=== PATIENT | female | born 1965 | race Caucasian/White ===

== ENCOUNTER 2022-11-01 09:38 | Emergency (ER) | payer BC ==
--- NOTE | 2022-11-01 09:48 | ED Physician Documentation ---
PD HPI BACK PAIN - Stated complaint Stated Complaint: BACK PX/SEIZING - History obtained from History obtained from: Patient - History of Present Illness Timing - onset: How many weeks ago (1) Timing - duration: Weeks (1) Timing - details: Gradual onset, Still present Location: Lower, Right Quality: Pain, Spasm, Aching Associated symptoms: No: Fever, Weakness, Numbness, Incontinent of urine Improves with: Rest. No: Meds Worsened by: Movement, Twisting, Palpation Contributing factors: Twisting. No: Trauma Similar symptoms before: Diagnosis (prior low back pain remotely. Not ongoing nor frequently recurring.) Recently seen: Not recently seen Review of Systems Constitutional: denies: Fever, Chills GI: denies: Abdominal Pain Skin: denies: Rash, Lesions Neurologic: denies: Focal weakness, Numbness PD PAST MEDICAL HISTORY - Past Medical History Cardiovascular: None Respiratory: None Endocrine/Autoimmune: None Musculoskeletal: None - Present Medications Home Medications: Ambulatory Orders Medication Instructions Recorded Confirmed Albuterol Sulf [Ventolin Hfa 1 - 2 puffs INH Q4HR PRN 11/01/22 11/01/22 Inhaler] Diclofenac Sodium 50 mg PO BID #20 tab 11/01/22 Famotidine 10 mg PO DAILY 11/01/22 11/01/22 Fluticasone Propionate [Flovent 1 puffs IH BID 11/01/22 11/01/22 Diskus] Montelukast [Singulair] 10 mg PO QPM 11/01/22 11/01/22 tiZANidine [Zanaflex] 4 mg PO Q8H PRN #25 tablet 11/01/22 - Allergies Allergies/Adverse Reactions: Allergies Allergy/AdvReac Type Severity Reaction Status Date / Time codeine Allergy Anaphylaxis Verified 11/01/22 09:51 metoclopramide [From Reglan] Allergy Hives Verified 11/01/22 09:51 ondansetron [From Zofran] Allergy Hives Verified 11/01/22 09:51 PD ED PE NORMAL - Vitals Vital signs reviewed: Yes - General General: Alert and oriented X 3, Well developed/nourished, Other (guarding ROM of the back, walking stiffly. ) - Abdomen Abdomen: Soft, Non tender - Back Back: No CVA TTP, No spinal TTP, Other (tender right lower lumbar at SI upper area. No redness/rash/sores. ) - Derm Derm: Normal color, Warm and dry - Neuro Neuro: Alert and oriented X 3, No motor deficit, No sensory deficit Results - Vitals Vitals: Vital Signs - 24 hr 11/01/22 09:51 Temperature 36 C L Heart Rate 95 Respiratory 12 Rate Blood Pressure 137/86 H O2 Saturation 98 Oxygen O2 Source Room air PD Medical Decision Making - ED course Complexity details: considered differential (right lower lumbar pain without abrupt trauma and no red flags on history/exam. can treat as muscular. ), d/w patient ED course: She has a very local area of tenderness right lower lumbar. gave Kenalog an d marcaine local injection without problems. Also given Toradol injection and pO muscle relaxant. She is allergic to codeine and prefers not opioids. Departure - Departure Disposition: 01 Home, Self Care Clinical Impression: Acute myofascial strain of lumbar region Qualifiers: Encounter type: initial encounter Qualified Code(s): S39.012A - Strain of muscle, fascia and tendon of lower back, initial encounter Condition: Stable Instructions: ED Sprain Strain Lumbar Prescriptions: Diclofenac Sodium 50 mg PO BID #20 tab tiZANidine [Zanaflex] 4 mg PO Q8H PRN #25 tablet PRN Reason: Spasms Comments: He, gentle stretching, massage and chiropractic are all good. If this is having difficulty getting better or even just for preventative, you could check with your primary care about getting a physical therapy referral. Continue with anti-inflammatories. The diclofenac is a good 1. Continue with at twice daily with food. To that add Tylenol every 4-6 hours if needed for pain. You can use 650 mg 4 times daily. Add tizanidine muscle relaxant if needed for spasms and stiffness. To that if still hurting, you can add the tramadol you have every 6 hours if needed. Recheck if not improving well over the next few days. I did do a local injection of triamcinolone which is a mild steroid medicine locally to see if that will help locally in conjunction with the oral medicine. I sent your prescription to [facility] pharmacy. Discharge Date/Time: 11/01/22 10:49
[2022-11-01 09:57] VITALS: BP 137/86
--- OUTSIDE RECORDS SUMMARY | 2022-11-01 09:59 | EXTERNAL MEDICAL SUMMARY RPT | Continuity of Care Document ---
:1965 Author Organization [facility] Address [address] [place] [address] Phone Care Team Providers Name Role Phone Unavailable Unavailable Unavailable Antelmo Mendoza Pa-C Unavailable Unavailable Allergies and Intolerances date description facility type (no date) REGLAN All (unknown) (no date) CODEINE All (unknown) Encounters No information. Functional Status No information. Immunizations No information. Medications date description facility 2022-08-07 00:00 fluticasone propionate All 2022-08-08 00:00 fluticasone propionate All 2022-08-07 00:00 fluticasone propionate All 2022-08-08 00:00 fluticasone propionate All 2022-08-07 00:00 albuterol sulfate All 2022-08-08 00:00 albuterol sulfate All 2022-08-07 00:00 prednisone All 2022-08-07 00:00 fluticasone propionate All 2022-08-08 00:00 fluticasone propionate All 2022-08-07 00:00 prednisone All 2022-08-07 00:00 fluticasone propionate All 2022-08-08 00:00 fluticasone propionate All 2022-08-07 00:00 montelukast All 2022-08-08 00:00 montelukast All 2022-08-07 00:00 fluticasone propionate All 2022-08-08 00:00 fluticasone propionate All 2022-08-07 00:00 prednisone All 2022-08-07 00:00 prednisone All 2022-08-07 00:00 fluticasone propionate All 2022-08-08 00:00 fluticasone propionate All 2022-08-07 00:00 albuterol sulfate All 2022-08-08 00:00 albuterol sulfate All 2022-08-07 00:00 albuterol sulfate All 2022-08-08 00:00 albuterol sulfate All 2022-08-07 00:00 fluticasone propionate All 2022-08-08 00:00 fluticasone propionate All 2022-08-07 00:00 montelukast All 2022-08-08 00:00 montelukast All 2022-08-07 00:00 albuterol sulfate All 2022-08-08 00:00 albuterol sulfate All 2022-08-07 00:00 montelukast All 2022-08-08 00:00 montelukast All 2022-08-07 00:00 albuterol sulfate All 2022-08-08 00:00 albuterol sulfate All 2022-08-07 00:00 montelukast All 2022-08-08 00:00 montelukast All 2022-08-07 00:00 albuterol sulfate All 2022-08-08 00:00 albuterol sulfate All 2022-08-07 00:00 albuterol sulfate All 2022-08-08 00:00 albuterol sulfate All 2022-08-07 00:00 albuterol sulfate All 2022-08-08 00:00 albuterol sulfate All 2022-08-07 00:00 fluticasone propionate All 2022-08-08 00:00 fluticasone propionate All Problems date description facility 2022-08-07 00:00 Pain in throat All 2022-08-07 00:00 Acute pharyngitis All 2022-08-07 00:00 Asthma, unspecified with (acute) exacer bation All 2022-08-07 00:00 Cough All 2022-08-07 00:00 Acute pharyngitis, unspecified All 2022-08-07 00:00 Mild persistent asthma with (acute) exa cerbation All 2022-08-07 00:00 Other specified cough All Procedures date description facility 2022-08-07 00:00 Visit Code Hold All 2022-08-07 00:00 POC STREP TEST All 2022-08-07 00:00 COVID, FLU A+B Antigen (In Clinic Free Test) All Results/Labs No information. Social History date description facility 2022-08-07 00:00 Unknown if ever smoked All 2022-08-08 00:00 Unknown if ever smoked All Vital Signs date measurement value units 2022-08-07 00:00 BMI 43.36 kg/m2 2022-08-07 00:00 BP_diastolic 84 mmHg 2022-08-07 00:00 BP_systolic 120 mmHg 2022-08-07 00:00 heart_rate 93 /min 2022-08-07 00:00 height_metric 171.45 cm 2022-08-07 00:00 height_standard 67.5 in 2022-08-07 00:00 respiration_rate 18 /min 2022-08-07 00:00 temperature_metric 37 C 2022-08-07 00:00 temperature_standard 98.6 F 2022-08-07 00:00 weight_metric 127.01 kg 2022-08-07 00:00 weight_standard 280 lb
[2022-11-01] MEDS ORDERED: TRIAMCINOLONE 40 MG/ML VIAL MC STA (10:06)
[2022-11-01] MEDS ORDERED: methocarbamoL 500 MG TABLET PO STA (10:07)
[2022-11-01] MEDS ORDERED: KETOROLAC 30 MG/ML VIAL IM STA (10:07)
[2022-11-01] MEDS ORDERED: ACETAMINOPHEN 500 MG TABLET PO STA (10:07)
== END 2022-11-01 10:49 | disposition home or self-care (01) ==
LOC: ED 09:38
DX: S39.012A Strain of muscle, fascia and tendon of lower back, initial encounter (principal); X50.1XXA Overexertion from prolonged static or awkward postures, initial encounter; Z79.51 Long term (current) use of inhaled steroids; Z79.899 Other long term (current) drug therapy
CPT/HCPCS: 20552; 96372; 99283; 99284; A9270

== ENCOUNTER 2022-12-12 15:14 | Outpatient (CLI) | payer BC ==
--- NOTE | 2022-12-15 10:36 | Mammography Report ---
BILATERAL DIGITAL SCREENING MAMMOGRAM 3D/2D: 12/12/2022 CLINICAL: Routine screening. Baseline exam. No prior exams were available for comparison. There are scattered areas of fibroglandular density in both breasts (category b / 25%-50% glandular t issue). There is an irregular equal density focal asymmetry in the right breast at 9 o'clock posterior depth. There is architectural distortion associated with the focal asymmetry. No other significant masses, calcifications, or other findings are seen in either breast. IMPRESSION: INCOMPLETE: NEEDS ADDITIONAL IMAGING EVALUATION The irregular equal density focal asymmetry in the right breast is indeterminate. Additional views w ith possible ultrasound are recommended. Based on the Tyrer Cuzick model (a risk assessment model) the patients lifetime risk is 11.9% and he r 10 year risk is 3.7%. According to the ACR, ACS, and NCCN guidelines, an annual breast MRI exam josse ng with mammogram is recommended if the patients lifetime risk is 20% or greater. This exam was interpreted at Station ID: [id number]. NOTE: For mammograms, a report in lay terms will be sent to the patient. Approximately 15% of breast malignancies will not be visualized mammographically. In the management of a palpable breast mass, a negative mammogram must not discourage biopsy of a clinically suspicious lesion. Electronically Signed By: Marty Farias M.D. aty/:12/15/2022 07:11:37 ACR BI-RADS Category 0: Incomplete 3340F PARENCHYMAL PATTERN: (A) - The breast(s) demonstrate(s) scattered fibroglandular densities. BI-RADS CATEGORY: (0) - 0 Mammo and [place] [id number] Immediate follow-up LATERALITY: (R)
== END 2022-12-12 15:15 | disposition home or self-care (01) ==
LOC: DI 15:14
DX: Z12.31 Encounter for screening mammogram for malignant neoplasm of breast (principal); R92.8 Other abnormal and inconclusive findings on diagnostic imaging of breast